=== PATIENT | male | born 1975 | race Caucasian/White ===

== ENCOUNTER 2018-04-08 22:29 | Emergency (ER) | payer MEDICAID, OTHER ==
[2018-04-09 10:36] VITALS: BP 117/73
--- NOTE | 2018-04-14 14:25 | EDM.PDOC ---
ED HPI GENERAL MEDICAL PROBLEM - General Chief Complaint: General Stated Complaint: CHEST PAIN Time Seen by Provider: 04/08/18 22:35 Source of Information: Reports: Patient History Limitations: Reports: No Limitations - History of Present Illness INITIAL COMMENTS - FREE TEXT/NARRATIVE: I'll is a 43-year-old man who has Atrovent because he has significant cardiomyopathy . Today he was felt to be confused by his family and he was found lying on the ground in some emesis while outside there were low temperatures outside. Family felt this was quite abnormal since the weather is been cold. and as he became more hydrated became more alert. He notes he did summer sausage and a bottle of pickles,which have high salt content. He is been advised to not eat salty foods. In addition because he ate more salty foods: a jar of all jalapenia peppers and a jar of Pepijija peppers (cheese with jalapenia peppers). He has talked about "wondering if life is worth living. " His family feels he is been acting "goofy with the kids. " He has moved in with his sister within the last week. And she is even sees a significant difference in his behavior. He has been less energetic. Depression scale S I G E C A P S: suicidal thoughts/ not suicidal "I would not do that", I: Interest/helpless and hopeless 50% of the time; G: guilt: I do feel guilty; I feel like I am such a burden E: energy : his energy is variable, most the time I have poor energy; t : ; C: concentration: I have a terrible time with concentration; "I have a hard time getting things out of my mind" . even though his father he keeps talking about getting together with his father. He was very close to his father A: appetite anorexia decreased, medication doesn't help when I feel anxious. I feel anxious most the time P: psychomotor retardation: I find it hard to get up and do things. I use to work by father used to build things I'm this him S: Sadness: I feel sad most the time No psychotic thoughts or hallucinations or delusions and he is not homicidal His sister notes that he was working on lawUpmann'sower today. She came to awaken and he was snoring under the lawnmower. She had difficulty waking him and could not until she shook him. The point he still didn't get up. He is vomited 5 times this afternoo His sister then called paramedics because she got hit by the fellow stroke she had a conversation with the transplant team. Transplant team advised her to have paramedics transported him the hospital to make sure he didn't have a CVA. 911 per medics got Marcell out from under the lawnmower. He tells me he thinks he is dehydrated because he only drank 3 bottles of water for 2 day total of 4-30 ounces of water.. Normally he should drink at least 64 ounces if not more a day. His sist with whom he is only the one we thought he was pale looking today she felt his depressed. And his diet been poor and weighs 226 pounds. He is more tired than usual and he talks slowly.er - Related Data Allergies Allergy/AdvReac Type Severity Reaction Status Date / Time No Known Allergies Allergy Verified 04/08/18 23:57 Home Meds: Home Meds Acetaminophen [Mapap] 325 mg PO Q6H PRN 04/09/18 [History] Aspirin [Adult Aspirin] 81 mg PO DAILY 04/09/18 [History] Escitalopram [Lexapro] 20 mg PO DAILY 04/09/18 [History] Levofloxacin 500 mg PO DAILY 04/09/18 [History] Metoprolol Succinate 100 mg PO DAILY 04/09/18 [History] Pantoprazole [ProTONIX] 40 mg PO DAILY 04/09/18 [History] Sacubitril/Valsartan [Entresto 24 mg-26 mg Tablet] 1 each PO BID 04/09/18 [ History] Sennosides/Docusate Sodium [Docusate Sodium-Sennosides Tab] 1 each PO ASDIRECTED PRN 04/09/18 [History] Spironolactone [Aldactone] 25 mg PO DAILY 04/09/18 [History] Tetrahydrozoline HCl [Eye Drops] 15 ml OP ASDIRECTED PRN 04/09/18 [History] Warfarin Sodium 1 tab PO ASDIRECTED 04/09/18 [History] Warfarin Sodium 1 tab PO ASDIRECTED 04/09/18 [History] Past Medical History - Past Health History Medical/Surgical History: Denies Medical/Surgical History - Past Surgical History Cardiovascular Surgical History: Reports: Other (See Below) Other Cardiovascular Surgeries/Procedures: LVAD heart pump. Social & Family History - Family History Family Medical History: Noncontributory ED ROS GENERAL - Review of Systems Review Of Systems: See Below Constitutional: Reports: Weakness, Fatigue, Decreased Appetite, Other HEENT: Reports: No Symptoms Respiratory: Reports: No Symptoms Cardiovascular: Reports: Dyspnea on Exertion, Edema, Lightheadedness Endocrine: Reports: No Symptoms GI/Abdominal: Reports: No Symptoms, Nausea, Other (Vomited 5 times yesterday) : Reports: No Symptoms, Other (Decreased urine output and she has) Musculoskeletal: Reports: Other (Denies muscle weakness but "I get along") Skin: Reports: No Symptoms Neurological: Reports: Confusion, Weakness Psychiatric: Reports: Anxiety, Depression, Mood Lability Hematologic/Lymphatic: Reports: Other (His sister says he is pale) Immunologic: Reports: No Symptoms ED EXAM, GENERAL - Physical Exam Exam: See Below Exam Limited By: No Limitations General Appearance: Alert, Anxious, Other (She talks slowly but deliberately but after he is rehydrated he did well with his mentation and interaction) Eye Exam: Bilateral Eye: Normal Fundi Ears: Normal External Exam, Normal Canal, Hearing Grossly Normal, Normal TMs Ear Exam: Bilateral Ear: Auricle Normal, Canal Normal, TM normal Nose: Normal Inspection, Normal Mucosa, No Blood Throat/Mouth: Normal Inspection, Normal Lips, Normal Teeth, Normal Gums, Normal Oropharynx, Normal Voice, No Airway Compromise Head: Atraumatic, Normocephalic Neck: Normal Inspection, Supple, Other (Roaring sound of the LVAD pump heard in the neck) Respiratory/Chest: No Respiratory Distress, Lungs Clear, Normal Breath Sounds, Other (No rales noted) Peripheral Pulses: 1+: Brachial (L), Brachial (R), Dorsalis Pedis (L), Dorsalis Pedis (R) GI/Abdominal: Normal Bowel Sounds, Soft, Non-Tender, No Organomegaly, No Distention, No Abnormal Bruit (Male) Exam: Deferred Rectal (Males) Exam: Deferred Back Exam: Normal Inspection, Full Range of Motion Extremities: Normal Inspection, Normal Range of Motion, Non-Tender, Normal Capillary Refill, Pedal Edema Neurological: Alert, Oriented, CN II-XII Intact, Normal Cognition, Normal Gait, Normal Reflexes, No Motor/Sensory Deficits Psychiatric: Anxious, Other (Gomes who is anxious tired as he became more rehydrated his countenance lightened up and he was more happy and interactive) Skin Exam: Warm, Dry, Intact, Normal Color, No Rash Lymphatic: No Adenopathy Course - Vital Signs Last Recorded V/S: Last Vital Signs Temp 36.4 C 04/09/18 00:50 Pulse 98 04/09/18 00:50 Resp 16 04/09/18 00:50 BP 117/73 04/09/18 00:50 Pulse Ox 100 04/09/18 00:50 - Orders/Labs/Meds Labs: Laboratory Tests 04/08/18 04/08/18 04/08/18 Range/Units 23:12 23:12 23:12 WBC 11.1 (4.5-12.0) X10-3/uL RBC 4.88 (4.30-5.75) x10(6)uL Hgb 14.5 (11.5-15.5) g/dL Hct 42.6 (30.0-51.3) % MCV 87.3 (80-96) fL MCH 29.6 (27.7-33.6) pg MCHC 34.0 (32.2-35.4) g/dL RDW 15.5 (11.5-15.5) % Plt Count 208 (125-369) X10(3)uL MPV 7.8 (7.4-10.4) fL Neut % (Auto) 85.3 H (46-82) % Lymph % (Auto) 9.1 L (13-37) % [place] % (Auto) 4.1 (4-12) % Eos % (Auto) 1 (1.0-5.0) % Baso % (Auto) 1 (0-2) % Neut # (Auto) 9.4 H (1.6-8.3) # Lymph # (Auto) 1.0 (0.6-5.0) # [place] # (Auto) 0.5 (0.0-1.3) # Eos # (Auto) 0.1 (0.0-0.8) # Baso # (Auto) 0.1 (0.0-0.2) # PT 28.0 H (8.7-11.1) INR 2.92 H (0.89-1.13) D-Dimer, Quantitative 0.53 (0.0-0.59) mg/LFEU Sodium (135-145) mmol/L Potassium (3.5-5.3) mmol/L Chloride (100-110) mmol/L Carbon Dioxide (21-32) mmol/L BUN (7-18) mg/dL Creatinine (0.70-1.30) mg/dL Est Cr Clr Drug Dosing Estimated GFR (MDRD) (>60) BUN/Creatinine Ratio (9-20) Glucose (80-116) mg/dL Calcium (8.6-10.2) mg/dL Total Bilirubin (0.1-1.3) mg/dL AST (5-25) IU/L ALT (12-36) U/L Alkaline Phosphatase (56-112) IU/L Total Protein (6.0-8.0) g/dL Albumin (3.5-5.2) g/dL Globulin g/dL Albumin/Globulin Ratio 04/08/18 Range/Units 23:12 WBC (4.5-12.0) X10-3/uL RBC (4.30-5.75) x10(6)uL Hgb (11.5-15.5) g/dL Hct (30.0-51.3) % MCV (80-96) fL MCH (27.7-33.6) pg MCHC (32.2-35.4) g/dL RDW (11.5-15.5) % Plt Count (125-369) X10(3)uL MPV (7.4-10.4) fL Neut % (Auto) (46-82) % Lymph % (Auto) (13-37) % [place] % (Auto) (4-12) % Eos % (Auto) (1.0-5.0) % Baso % (Auto) (0-2) % Neut # (Auto) (1.6-8.3) # Lymph # (Auto) (0.6-5.0) # [place] # (Auto) (0.0-1.3) # Eos # (Auto) (0.0-0.8) # Baso # (Auto) (0.0-0.2) # PT (8.7-11.1) INR (0.89-1.13) D-Dimer, Quantitative (0.0-0.59) mg/LFEU Sodium 130 L (135-145) mmol/L Potassium 3.7 (3.5-5.3) mmol/L Chloride 95 L (100-110) mmol/L Carbon Dioxide 23 (21-32) mmol/L BUN 7 (7-18) mg/dL Creatinine 1.1 (0.70-1.30) mg/dL Est Cr Clr Drug Dosing TNP Estimated GFR (MDRD) > 60 (>60) BUN/Creatinine Ratio 6.4 L (9-20) Glucose 116 (80-116) mg/dL Calcium 8.5 L (8.6-10.2) mg/dL Total Bilirubin 1.1 (0.1-1.3) mg/dL AST 27 H (5-25) IU/L ALT 34 (12-36) U/L Alkaline Phosphatase 83 (56-112) IU/L Total Protein 7.6 (6.0-8.0) g/dL Albumin 3.9 (3.5-5.2) g/dL Globulin 3.7 g/dL Albumin/Globulin Ratio 1.1 Departure - Departure Time of Disposition: 01:30 (This veryAfter patient had been flushed with fluid that his mentation had improved. His inclined to joke about what's going on. He made light of several things. He is not suicidal but he is dehydrated. This is affecting suspicious physician and lives interaction with the family and his nephew's also his sister. He has no sign of infection. His INR is stable and appropriate. And the LVAD is working welltestis whirring sound that is no different than sound of a high-speed motor, strongly has moderate anxiety and he has some stigmata of MARGIE C APS abnormalities. They all suggests major depression without suicidal ideation. His INR is stable. He has mild hyponatremia and hypokalemia. He has mild neutrophilia with a normal white count of his eosinophilia no evidence for blood loss or anemia. Janiya is depressed at this point but that suicidal and is more buoyant after he had adequate rehydration with fluid in the ER. Plans are to send him home to follow- up with Dr. moeller.) Disposition: Home, Self-Care 01 Clinical Impression: LVAD (left ventricular assist device) present, Dehydration, Mild congestive heart failure - Discharge Information *PRESCRIPTION DRUG MONITORING PROGRAM REVIEWED*: Not Applicable *COPY OF PRESCRIPTION DRUG MONITORING REPORT IN PATIENT CHRISTINA: Not Applicable Referrals: PCP,Not In Area [Primary Care Provider] - Forms: ED Department Discharge Additional Instructions: your lab tests were normal. You were dehydrated, that is why you are personality and interaction with the children and your sister was "funny". U need to make sure you take in at least 64 ounces of liquid every day (2 quarts =2 Liters of fluid every day) He need to play with open hand and shoulder cards to her sister. That means she needed to have more open communication with her sister. She was very concerned about her health today because she did not know what going on and has only been with you for a week. Follow-up with her doctor in 1 week, as I think different medicines might be helpful with your depression r
== END 2018-04-09 01:00 | disposition home or self-care (01) ==
LOC: FB.ED 22:29
DX: I50.9 Heart failure, unspecified (principal); E86.0 Dehydration; Z79.899 Other long term (current) drug therapy; Z95.811 Presence of heart assist device; Z79.82 Long term (current) use of aspirin
CPT/HCPCS: 36415; 80053; 85025; 85379; 85610; 99284